=== PATIENT | male | born 1970 | race African-American/Black ===

== ENCOUNTER 2019-09-10 16:22 | Emergency (ER) | payer OTHER ==
--- NOTE | 2019-09-10 16:39 | PDOC ---
History of Present Illness - General Chief Complaint: Pain Stated Complaint: RIGHT HIP PAIN Time Seen by Provider: 09/10/19 16:38 - History of Present Illness Initial Comments: 09/10/19 17:02 49 year old no pmhx presents with R sided sacral pain Past History - Past Medical History Allergies/Adverse Reactions: Allergies Allergy/AdvReac Type Severity Reaction Status Date / Time shellfish derived Allergy Verified 09/10/19 16:25 Home Medications: Ambulatory Orders Ibuprofen 800 mg PO TID PRN #30 tablet 09/10/19 Lidocaine 5% Patch [Lidoderm -] 1 patch TP DAILY #30 patch 09/10/19 COPD: No Other medical history: PT DENIES - Psycho Social/Smoking Cessation Hx Smoking History: Current every day smoker Have you smoked in the past 12 months: Yes Number of Cigarettes Smoked Daily: 10 Information on smoking cessation initiated: Yes Hx Alcohol Use: (nightly) *Physical Exam - Vital Signs Last Vital Signs Temp Pulse Resp BP Pulse Ox 98.1 F 78 18 158/87 96 09/10/19 16:22 09/10/19 16:22 09/10/19 16:22 09/10/19 16:22 09/10/19 16:22 Discharge - Discharge Information Problems reviewed: Yes Clinical Impression/Diagnosis: Musculoskeletal back pain Condition: Stable - Admission No - Additional Discharge Information Prescriptions: Ibuprofen 800 mg PO TID PRN #30 tablet PRN Reason: Pain Lidocaine 5% Patch [Lidoderm -] 1 patch TP DAILY #30 patch - Follow up/Referral Referrals: Danya Carolina MD [Primary Care Provider] - - Patient Discharge Instructions Patient Printed Discharge Instructions: DI for Low Back Pain Additional Instructions: You were seen in the ED for complaints of back pain In the ED you were evaluated and showed improvement with symptomatic treatment. There does not appear to be an acute need for immediate hospitalization. You are advised to follow up with your Primary Care Physician within 1 week. You were given a prescription for pain medication and lidocaine patch, please take as directed. Return to the ED immediately if you experience worsening back pain, numbness, tingling, urinary symptoms or any other concerning symptoms. - Post Discharge Activity
[2019-09-10 16:49] VITALS: BP 158/87; PULSE 78; TEMP 98.1; BMI 27.8
[2019-09-10] MEDS ORDERED: ACETAMINOPHEN 500 MG TABLET (FP) PO ONE (16:54)
--- NOTE | 2019-09-10 16:57 | PDOC ---
Attending Attestation - Resident Resident Name: Avinashjuan [email or web address] - HPI HPI: 09/10/19 18:47 Pt presents to the ED complaining of atraumatic lower back pain. History of fall in December--states that since then, he has had intermittent pain in his lower back. States that the pain began when he was reaching for something on the floor. - Physicial Exam PE: 09/10/19 18:53 Agree with resident exam. Patient is alert and oriented x 3 and in no acute distress. Ambulatory with slightly antalgic gait. + paraspinal tenderness close to the sacrum. - Medical Decision Making 09/10/19 18:55 Pt presents to the ED complaining of atraumatic back pain. No point tenderness over the spine. Most likely muscular pain. Will treat with lidocaine patch and ibuprofen and discharge .
[2019-09-10] MEDS ORDERED: ACETAMINOPHEN 500 MG TABLET (FP) ONE (16:59)
[2019-09-10] MEDS ORDERED: IBUPROFEN 400 MG TABLET (FP) PO ONE ×2 (17:00)
[2019-09-10] MEDS ORDERED: LIDOCAINE 5% TOPICAL PATCH TP ONE (17:35)
[2019-09-10] MEDS ORDERED: LIDOCAINE 5% TOPICAL PATCH ONE (17:44)
[2019-09-10] MEDS ORDERED: LIDOCAINE PATCH REMOVAL MC SCH (22:00)
== END 2019-09-10 18:20 | disposition home or self-care (01) ==
LOC: EDBD 16:22 → FER 16:22
DX: F17.210 Nicotine dependence, cigarettes, uncomplicated (principal); Z91.013 Allergy to seafood
CPT/HCPCS: 99282-25